=== PATIENT | female | born 1995 | race Caucasian/White ===

== ENCOUNTER 2018-02-06 18:28 | Inpatient (IN) | payer OTHER ==
[~2018-02-06] VITALS: Ht 175.3 cm; Wt 76.7 kg
[2018-02-06 18:40] VITALS: BP 125/66
--- NOTE | 2018-02-06 18:56 | NUR ---
AMBULATES TO BED 9 W/ SLOW STEADY GAIT
--- NOTE | 2018-02-06 19:15 | NUR ---
PATIENT PRESENTS TO ED WITH RIGHT LOWER BACK PAIN X1 DAY. PATIENT STATES A SHARP AND SHOOTING PAIN IN HER LOWER RIGHT BACK NON RADIATING. PATIENT DENIES ANY PAIN OR TROUBLE DURING URINATION; . PT STATES NAUSEA BUT DENIES V/D; SKIN IS PINK/WARM/DRY; AAOX4 WITH EVEN AND STEADY GAIT; LUNGS CLEAR BL; HR EVEN AND REGULAR; PT DENIES ANY FEVER, CP, SOB, OR COUGH AT THIS TIME; PATIENT STATES PAIN OF 7/10 AT THIS TIME; VSS; PATIENT POSITIONED FOR COMFORT; HOB ELEVATED; BEDRAILS UP X1; BED DOWN. ER MD MADE AWARE OF PT STATUS.
[2018-02-06] MEDS ORDERED: CYCLOBENZAPRINE 10 MG TAB PO ONE (19:20)
[2018-02-06] MEDS ORDERED: IBUPROFEN 800 MG TAB PO ONE (19:20)
--- NOTE | 2018-02-06 20:32 | NUR ---
Dr. Mccullough evaluating patient at bedside.
--- NOTE | 2018-02-06 20:47 | NUR ---
Patient taken to CT scan via wheelchair by tech.
[2018-02-06 20:52] LABS: APPEARANCE,URINE CLEAR (CLEAR); BILIRUBIN,URINE NEGATIVE (NEGATIVE); COLOR,URINE YELLOW (YELLOW); LEUKOCYTE ESTERASE ,URINE NEGATIVE (NEGATIVE); NITRITE, URINE NEGATIVE (NEGATIVE); UGLUCOSE NEGATIVE (NEGATIVE)
[2018-02-06 20:54] LABS: BLOOD, URINE NEGATIVE (NEGATIVE)
--- NOTE | 2018-02-06 20:57 | NUR ---
Patient returned from CT scan. RN re-evaluating patient at bedside.
[2018-02-06] MEDS ORDERED: HYDROcodone/APAP 5/325 MG 1 TAB TAB PO ONE (21:50)
[2018-02-06] MEDS ORDERED: MORPHINE SULFATE 4 MG/ML SYR IVP ONE (22:05)
[2018-02-06] MEDS ORDERED: NACL 0.9% 1,000 ML IV ONE (22:05)
[2018-02-06] MEDS ORDERED: MORPHINE SULFATE 4 MG/ML SYR ONE (22:10)
[2018-02-06 22:31] LABS: BASOPHILS % (AUTO) 0.5 % (0.0-2.0); EOSINOPHILS # (AUTO) 0.1 K/uL (0-0.4); HEMATOCRIT 41.9 % (36-48); HEMOGLOBIN 13.7 g/dL (12.0-16.0); LYMPHOCYTES # (AUTO) 2.2 K/uL (2.5-16.5); LYMPHOCYTES % (AUTO) 33.8 % (20.5-51.1); MEAN CORPUSCULAR HEMOGLOBIN 28 pg (27-31); MEAN CORPUSCULAR HGB CONC 33 g/dL (33-37); MEAN CORPUSCULAR VOLUME 86.1 fL (80-94); MONOCYTES # (AUTO) 0.7 K/uL (0.8-1.0); MONOCYTES % (AUTO) 10.2 % (1.7-9.3); NEUTROPHILS # (AUTO) 3.6 K/uL (1.8-7.7); NEUTROPHILS % (AUTO) 53.5 % (42.2-75.2); PLATELET COUNT (AUTO) 241 K/uL (140-450); RED BLOOD CELL COUNT(AUTO) 4.87 MIL/uL (4.20-5.40); RED CELL DISTRIBUTION WIDTH 13.5 % (11.6-13.7); WHITE BLOOD COUNT (AUTO) 6.6 K/uL (4.8-10.8)
[2018-02-06 22:40] LABS: ANION GAP 13.7 (8-16); CARBON DIOXIDE 26.6 mmol/L (21-32); CREATININE 0.7 mg/dL (0.6-1.3); POTASSIUM 4.3 mmol/L (3.5-5.1)
[2018-02-06 22:46] LABS: ALBUMIN 4.2 g/dL (3.4-5.0); TOTAL BILIRUBIN 0.4 mg/dL (0.0-1.0)
[2018-02-06 22:52] LABS: PROTHROMBIN TIME 10.6 secs (10.8-13.4)
[2018-02-07] MEDS: DEXT 5% /NACL 0.9% 1,000 ML IV SCH ×2 (00:05→13:25)
[2018-02-07] MEDS ORDERED: ACETAMINOPHEN 325 MG TAB PO PRN (00:05)
[2018-02-07 00:45] VITALS: BP 114/58
--- NOTE | 2018-02-07 00:47 | NUR ---
Patient will be admitted to care of DR. ZIEGLER. Admited to MED SURG. Will go to room 105B. Belongings list completed. Report to CANDE THOMAS.
--- NOTE | 2018-02-07 01:12 | NUR ---
RECEIVED REPORT FROM DAYSHIFT NURSE AT BEDSIDE FOR CONTINUITY OF CARE PT AAOX4. IV LAC 20G SALINE LOCK. PT IS AMBULATORY. NO SOB NO S/S OF DISTRESS ON RA. BED LOWERED CALL LIGHT WITHIN REACH WILL CONTINUE TO MONITOR. PT ORIENTED TO ROOM.
[2018-02-07] MEDS: metroNIDAZOLE 500 MG/NS PREMIX 100 ML IV SCH ×3 (04:43→20:18)
--- NOTE | 2018-02-07 07:30 | NUR ---
RECEIVED REPORT FROM FOOD SERVICE REPRESENTATIVE NURSE, PT IS SLEEPING IN BED BUT EASILY AWAKEN, PT IS AAOX4, AMBULATORY, IV IS ON THE LEFT AC, FLUSHING WELL, MINIMAL SWELLING NOTED, WILL CONTINUE TO MONITOR, NO S/S OF RESPIRATORY DISTRESS OR DISCOMFORT NOTED, DISCUSSED PLAN OF CARE WITH PT, PT VERBALIZED UNDERSTANDING, SAFETY/FALL PRECAUTIONS ARE IN PLACE, CALL LIGHT WITHIN REACH, WILL CONTINUE TO MONITOR.
--- NOTE | 2018-02-07 07:30 | NUR ---
ENDORSED REPORT FROM DAYSHIFT NURSE AT BEDSIDE FOR CONTINUITY OF CARE.
[2018-02-07 08:00] VITALS: BP 108/57
--- NOTE | 2018-02-07 08:41 | NUR ---
PATIENT HAS BEEN SCREENED AND CATEGORIZED LOW NUTRITION RISK. PATIENT WILL BE SEEN WITHIN 7 DAYS OF ADMISSION. 02/13/[address]
[2018-02-07] MEDS: MORPHINE SULFATE 4 MG/ML SYR IVP PRN ×2 (08:45→23:23)
[2018-02-07] MEDS: ONDANSETRON 4 MG/2 ML VIAL IVP PRN (08:45)
--- NOTE | 2018-02-07 09:20 | NUR ---
NEW IV STARTED ON THE PATIENT'S LEFT WRIST, #22, PATENT, INTACT, FLUSHING WELL. PT TOLERATED WELL. PT'S FATHER IS AT BEDSIDE, CALL LIGHT WITHIN REACH.
--- NOTE | 2018-02-07 11:15 | NUR ---
CHARGE NURSE CALLED DR. SOUZA AND DID GET A HOLD OF HIM. PER DR. SOUZA DUE 12 LEAD EKG, CXR, TEST AND OBTAIN CONSENT. DR. SOUZA SAID HE WOULD BE HERE AFTER 18:30 TODAY.
--- NOTE | 2018-02-07 13:00 | NUR ---
PT RESTING IN BED, PT'S BOYFRIEND IS AT BEDSIDE.
--- NOTE | 2018-02-07 13:25 | NUR ---
CM NOTE INITIAL REVIEW FAXED TO [facility] [phone] PRE[facility] #
[2018-02-07 14:10] LABS: PROTHROMBIN TIME 11.2 secs (10.8-13.4)
--- NOTE | 2018-02-07 14:50 | NUR ---
PT RESTING IN BED, USING HER CELL PHONE, NO S/S OF DISCOMFORT NOTED, CALL LIGHT IS WITHIN REACH.
[2018-02-07 16:00] VITALS: BP 103/60
--- NOTE | 2018-02-07 17:35 | NUR ---
PT RESTING IN BED, NO S/S OF RESPIRATORY DISTRESS OR DISCOMFORT NOTED, CALL LIGHT WITHIN REACH.
--- NOTE | 2018-02-07 19:10 | NUR ---
ENDORSED PT TO WATER PIPE INSTALLER NURSE FOR CONTINUITY OF CARE. PT STABLE AT THIS TIME.
--- NOTE | 2018-02-07 19:30 | NUR ---
ASSUMED CARE OF PATIENT, AWAKE, ALERT AND ORIENTED. FAMILY AT BEDSIDE. AWAITING FOR SURGEON TO ARRIVE. NPO. CALL LIGHT WITHIN REACH.
[2018-02-07] MEDS ORDERED: BUPIVACAINE-MPF 0.25% 30 ML VIAL INJ ONE (20:31)
[2018-02-07] MEDS ORDERED: fentaNYL 0.05 MG/ML VIAL ONE (20:39)
[2018-02-07] MEDS ORDERED: LIDOCAINE 2% 100 MG/5 ML SYR IVP ONE (20:39)
[2018-02-07] MEDS ORDERED: SUCCINYLCHOLINE CHLORIDE 200 MG/10 ML VIAL IVP ONE (20:39)
[2018-02-07] MEDS ORDERED: DESFLURANE 240 ML BTL INH ONE (20:39)
[2018-02-07] MEDS ORDERED: ePHEDrine 50 MG/ML VIAL ONE (20:39)
[2018-02-07] MEDS ORDERED: ROCURONIUM 50 MG/5 ML VIAL IV ONE (20:39)
[2018-02-07] MEDS ORDERED: DEXAMETHASONE 4 MG/ML VIAL ONE (20:39)
[2018-02-07] MEDS ORDERED: PHENYLEPHRINE 10 MG/ML VIAL ONE (20:39)
[2018-02-07] MEDS ORDERED: MIDAZOLAM 2 MG/2 ML VIAL ONE (20:39)
[2018-02-07] MEDS ORDERED: GLYCOPYRROLATE 0.2 MG/ML VIAL ONE (20:39)
[2018-02-07] MEDS ORDERED: KETOROLAC 30 MG/ML VIAL ONE (20:39)
[2018-02-07] MEDS ORDERED: PROPOFOL 200 MG/20 ML VIAL IV ONE (20:39)
--- NOTE | 2018-02-07 20:45 | NUR ---
PICKED UP TO OR BY OR TEAM. DR. KUMAR AT BEDSIDE. CONSENT OBTAINED.
[2018-02-07] MEDS ORDERED: HYDROmorphone 1 MG/ML AMP IVP PRN (21:10)
[2018-02-07] MEDS ORDERED: ONDANSETRON 4 MG/2 ML VIAL IVP PRN (21:10)
[2018-02-07] MEDS ORDERED: ONDANSETRON 4 MG/2 ML VIAL ONE (22:03)
[2018-02-07] MEDS: HYDROmorphone PFS 2 MG/ML SYR ONE ×2 (22:05→22:15)
--- NOTE | 2018-02-07 22:40 | NUR ---
BACK FROM SURGERY VIA [place]. STABLE CONDITION. VITAL SIGNS STABLE. CALL LIGHT WITHIN REACH.
--- NOTE | 2018-02-08 | NUR ---
VITAL SIGNS STABLE. NO COMPLAINS. AFEBRILE. SLEEPING WELL. CALL LIGHT WITHIN REACH.
[2018-02-08 00:14] VITALS: BP 94/47
[2018-02-08] MEDS: DEXT 5% /NACL 0.9% 1,000 ML IV SCH ×2 (02:45→09:16)
[2018-02-08] MEDS: ONDANSETRON 4 MG/2 ML VIAL IVP PRN ×3 (03:03→12:59)
[2018-02-08] MEDS: metroNIDAZOLE 500 MG/NS PREMIX 100 ML IV SCH ×3 (04:40→20:30)
[2018-02-08] MEDS: MORPHINE SULFATE 4 MG/ML SYR IVP PRN ×3 (06:45→19:25)
--- NOTE | 2018-02-08 07:23 | NUR ---
ENDORSED CARE AT BEDSIDE WITH ALEXA RN, PATIENT IN STABLE CONDITION.
--- NOTE | 2018-02-08 07:30 | NUR ---
RECEIVED PT ON BED AAOX4 NO SOB NOTED. NO C/O PAIN AT THIS TIME. IV TO RT WRIST PATENT AND INTACT. CHEST CLEAR. ABDOMEN SOFT, BOWEL SOUNDS PRESENT. NO EDEMA NOTED. WITH 4 SMALL SURGICAL INCISIONS ON ABDOMEN, STERI STRIPS DRY AND INTACT. NO EDEMA NOTED. INSTRUCTED PT TO CALL FOR ASSISTANCE, CALL LIGHT WITHIN REACH, PT VERBALIZED UNDERSTANDING.
[2018-02-08 07:59] LABS: BASOPHILS % (AUTO) 0.2 % (0.0-2.0); HEMATOCRIT 38.1 % (36-48); HEMOGLOBIN 12.6 g/dL (12.0-16.0); LYMPHOCYTES # (AUTO) 0.6 K/uL (2.5-16.5); LYMPHOCYTES % (AUTO) 8.8 % (20.5-51.1); MEAN CORPUSCULAR HEMOGLOBIN 29 pg (27-31); MEAN CORPUSCULAR HGB CONC 33 g/dL (33-37); MEAN CORPUSCULAR VOLUME 86.3 fL (80-94); MONOCYTES # (AUTO) 0.3 K/uL (0.8-1.0); MONOCYTES % (AUTO) 3.8 % (1.7-9.3); NEUTROPHILS % (AUTO) 87.2 % (42.2-75.2); PLATELET COUNT (AUTO) 214 K/uL (140-450); RED BLOOD CELL COUNT(AUTO) 4.41 MIL/uL (4.20-5.40); RED CELL DISTRIBUTION WIDTH 13.3 % (11.6-13.7); WHITE BLOOD COUNT (AUTO) 6.8 K/uL (4.8-10.8)
[2018-02-08 08:00] VITALS: BP 106/60
[2018-02-08 08:26] LABS: POTASSIUM 4.9 mmol/L (3.5-5.1)
[2018-02-08 08:27] LABS: ALBUMIN 3.4 g/dL (3.4-5.0); ANION GAP 12.7 (8-16); CARBON DIOXIDE 26.2 mmol/L (21-32); CREATININE 0.8 mg/dL (0.6-1.3); TOTAL BILIRUBIN 0.5 mg/dL (0.0-1.0)
--- NOTE | 2018-02-08 09:00 | NUR ---
PT AMBULATING IN THE HALLWAY. ACTIVITY TOLERATED WELL. PT STATED SHE HAS BEEN BURPING.
--- NOTE | 2018-02-08 13:00 | NUR ---
PT VOMITED PREVIOUSLY TAKEN LIQUIDS, APPROXIMATELY 200 MLS. ZOFRAN IVP GIVEN PRN. WILL CONTINUE TO MONITOR PT.
--- NOTE | 2018-02-08 14:25 | NUR ---
PT SEEN BY DR. ZIEGLER. NO NEW ORDERS.
[2018-02-08 16:00] VITALS: BP 107/67
--- NOTE | 2018-02-08 17:00 | NUR ---
DR. KUMAR CALLED AND CHECKED ON PT. NEW ORDERS GIVEN OVER THE PHONE.
--- NOTE | 2018-02-08 17:00 | NUR ---
DR. ETIENNE CALLED AND CHECKED ON PT. NEW ORDERS GIVEN OVER THE PHONE. Addendum: 02/09/18 at 0847 by Beverly Quintero RN DISREGARD ABOVE NOTES. WRONG DOCTOR.
[2018-02-08] MEDS: METOCLOPRAMIDE 10 MG/2 ML INJ VIAL IVP SCH ×2 (18:33→23:41)
--- NOTE | 2018-02-08 18:49 | NUR ---
PT AMBULATING AGAIN IN THE HALLWAY. ACTIVITY TOLERATED WELL. PT STATED SHE PASSED GAS 3X TIMES NOW. WILL ENDORSE TO NEXT SHIFT NURSE FOR CONTINUITY OF CARE.
--- NOTE | 2018-02-08 19:16 | NUR ---
RECEIVED REPORT FROM DAY SHIFT RN, PATIENT RESTING IN BED, STATED SURGICAL PAIN 8/10, INFORMED PATIENT THAT I WOULD CHECK HER VITAL SIGNS FIRST, THEN GIVE HER PAIN MEDICATION. PATIENT VERBALIZED UNDERSTANDING. IV PATENT AND INTACT, INFUSING FLUID WELL. CALL LIGHT WITHIN REACH, SAFETY MEASURE ENSURED, WILL CONTINUE TO MONITOR.
[2018-02-08 19:20] VITALS: BP 103/60
--- NOTE | 2018-02-08 20:34 | NUR ---
DUE MEDICATION GIVEN, PATIENT TOLERATED WELL. CALL LIGHT WITHIN REACH, SAFETY MEASURE ENSURED, WILL CONTINUE TO MONITOR.
--- NOTE | 2018-02-08 22:19 | NUR ---
BOY FRIEND IS VISITING PATIENT, PATIENT AWAKE ALERT ORIENTED X4. NO S/S OF DISTRESS NOTED, CALL LIGHT WITHIN REACH, SAFETY MEASURE ENSURED, WILL CONTINUE TO MONITOR.
[2018-02-08 23:47] VITALS: BP 105/59
[2018-02-09] MEDS: MORPHINE SULFATE 4 MG/ML SYR IVP PRN ×2 (00:05→05:54)
--- NOTE | 2018-02-09 00:54 | NUR ---
PAIN 8/10, BP 105/59, HR 72, PAIN MEDICATION ADMINISTERED, PATIENT IS SLEEPING RIGHT NOW, RESPIRATION EVEN AND UNLABORED, CALL LIGHT WITHIN REACH, SAFETY MEASURE ENSURED, WILL CONTINUE TO MONITOR.
--- NOTE | 2018-02-09 02:16 | NUR ---
PATIENT IS SLEEPING, NO S/S OF DISTRESS NOTED, RESPIRATION EVEN AND UNLABORED, CALL LIGHT WITHIN REACH, SAFETY MEASURE ENSURED, WILL CONTINUE TO MONITOR.
[2018-02-09] MEDS: metroNIDAZOLE 500 MG/NS PREMIX 100 ML IV SCH ×2 (05:00→12:20)
[2018-02-09] MEDS: METOCLOPRAMIDE 10 MG/2 ML INJ VIAL IVP SCH (05:00)
[2018-02-09] MEDS: DEXT 5% /NACL 0.9% 1,000 ML IV SCH ×2 (05:00→12:20)
--- NOTE | 2018-02-09 05:07 | NUR ---
DUE MEDICATION GIVEN, PATIENT TOLERATED WELL. CALL LIGHT WITHIN REACH, SAFETY MEASURE ENSURED, WILL CONTINUE TO MONITOR.
--- NOTE | 2018-02-09 05:58 | NUR ---
PAIN 8/10, BP 104/61, HR 71, PAIN MEDICATION GIVEN ORDERED. CALL LIGHT WITHIN REACH, SAFETY MEASURE ENSURED, WILL CONTINUE TO MONITOR.
[2018-02-09 06:37] LABS: BASOPHILS % (AUTO) 0.2 % (0.0-2.0); EOSINOPHILS % (AUTO) 0.8 % (0.0-4.0); HEMOGLOBIN 10.9 g/dL (12.0-16.0); LYMPHOCYTES # (AUTO) 1.8 K/uL (2.5-16.5); LYMPHOCYTES % (AUTO) 32.3 % (20.5-51.1); MEAN CORPUSCULAR HEMOGLOBIN 28 pg (27-31); MEAN CORPUSCULAR HGB CONC 33 g/dL (33-37); MEAN CORPUSCULAR VOLUME 85.7 fL (80-94); MONOCYTES # (AUTO) 0.6 K/uL (0.8-1.0); MONOCYTES % (AUTO) 11.8 % (1.7-9.3); NEUTROPHILS % (AUTO) 54.9 % (42.2-75.2); PLATELET COUNT (AUTO) 182 K/uL (140-450); RED BLOOD CELL COUNT(AUTO) 3.85 MIL/uL (4.20-5.40); RED CELL DISTRIBUTION WIDTH 13.6 % (11.6-13.7); WHITE BLOOD COUNT (AUTO) 5.5 K/uL (4.8-10.8)
[2018-02-09 07:11] LABS: ALBUMIN 3.1 g/dL (3.4-5.0); ANION GAP 9.6 (8-16); CREATININE 0.8 mg/dL (0.6-1.3); POTASSIUM 3.6 mmol/L (3.5-5.1); TOTAL BILIRUBIN 0.6 mg/dL (0.0-1.0)
--- NOTE | 2018-02-09 07:20 | NUR ---
ENDORSED PLAN OF CARE TO DAY SHIFT RN, PATIENT IS IN STABLE CONDITION.
[2018-02-09 08:00] VITALS: BP 110/57
--- NOTE | 2018-02-09 08:45 | NUR ---
PT TOLERATED FULL LIQUIDS FOR BREAKFAST. NO N&V NOTED.
[2018-02-09] MEDS ORDERED: ACETAMINOPHEN/CODEINE 300/30MG 1 TAB PO PRN (09:00)
[2018-02-09] MEDS ORDERED: DOCUSATE SODIUM 100 MG GELCAP PO SCH (09:00)
--- NOTE | 2018-02-09 09:04 | NUR ---
CM NOTE concurrent REVIEW FAXED TO [facility] [phone] PRETTY # [phone]
--- NOTE | 2018-02-09 09:05 | NUR ---
DR. KUMAR CALLED AND UPDATED WITH PT'S STATUS. NEW ORDERS GIVEN OVER THE PHONE.
[2018-02-09] MEDS ORDERED: METOCLOPRAMIDE 10 MG/2 ML INJ VIAL IVP SCH (12:00)
--- NOTE | 2018-02-09 12:30 | NUR ---
PT TOLERATED FULL LIQUID FOR LUNCH. NO C/O N&V NOTED.
[2018-02-09] MEDS ORDERED: ACET-2863 PO (13:57)
--- NOTE | 2018-02-09 14:45 | NUR ---
DISCHARGE INSTRUCTIONS AND PRESCRIPTIONS GIVEN TOP PT WHICH VERBALIZED FULL UNDERSTANDING OF THE INSTRUCTIONS AND THE NEED TO FOLLOW UP WITH DR. KUMAR AND PT'S OWN PCP WITHIN 1 WEEK. ARM BANDS AND IV REMOVED, CANNULA TIP INTACT.
--- NOTE | 2018-02-09 15:00 | NUR ---
PT ESCORTED OUT, AMBULATORY. NO SOB NOTED. NO COMPLAINTS MADE. 4 SMALL ABD INCISIONS WITH STERI STRIPS INTACT. PT IS D/C HOME WITH FAMILY.
== END 2018-02-09 15:00 | disposition home or self-care (01) | DRG 234 ==
LOC: MED 18:28 → MTU 02-07 00:10
PROVIDERS: ADMIT Hospitalist; ATTEND Hospitalist
PROC: 0DTJ4ZZ Resection of Appendix, Percutaneous Endoscopic Approach (ICD-10-PCS; principal; 2018-02-07 20:30)
DX: K35.80 Unspecified acute appendicitis (principal)
CPT/HCPCS: 36415; 71045; 76705; 80053; 81003; 81025; 83605; 85025; 85610; 85730; 87040; 87081; 88304; 93005; 96361; 96374; 99285; J0330; J1100; J1170; J1885; J2001; J2250; J2270; J2370; J2405; J2704; J2765; J3010; J3490; J7030; J7042; J7120; Q0092

== ENCOUNTER 2018-07-15 15:09 | Emergency (ER) | payer OTHER ==
[~2018-07-15] VITALS: Ht 172.7 cm; Wt 76.9 kg
[~2018-07-15 15:09] MED LIST: HYDR-5123 PO
[2018-07-15 15:12] VITALS: BP 133/84
--- NOTE | 2018-07-15 15:33 | NUR ---
Patient being evaluated by physician at bedside.
--- NOTE | 2018-07-15 15:35 | NUR ---
23/ F BIB BOYFRIEND, C/O VAGINAL BLEEDING 30 MIN AGO, SATURATED CLOTHING. DENIES CRAMPING , DISCOMFORT, WEAKNESS, N/V, OR ANY INJURY. RECENTLY FINISHED ABX FOR UTI. AOX4, STEADY GAIT, SAFETY PRECAUTIONS APPLIED.
[2018-07-15 15:47] LABS: BASOPHILS % (AUTO) 0.3 % (0.0-2.0); EOSINOPHILS # (AUTO) 0.1 K/uL (0-0.4); EOSINOPHILS % (AUTO) 0.9 % (0.0-4.0); HEMATOCRIT 36.7 % (36-48); HEMOGLOBIN 12.3 g/dL (12.0-16.0); LYMPHOCYTES # (AUTO) 1.7 K/uL (2.5-16.5); LYMPHOCYTES % (AUTO) 19.6 % (20.5-51.1); MEAN CORPUSCULAR HEMOGLOBIN 28 pg (27-31); MEAN CORPUSCULAR HGB CONC 33 g/dL (33-37); MONOCYTES # (AUTO) 0.7 K/uL (0.8-1.0); MONOCYTES % (AUTO) 7.8 % (1.7-9.3); NEUTROPHILS # (AUTO) 6.4 K/uL (1.8-7.7); NEUTROPHILS % (AUTO) 71.4 % (42.2-75.2); PLATELET COUNT (AUTO) 219 K/uL (140-450); RED BLOOD CELL COUNT(AUTO) 4.42 MIL/uL (4.20-5.40); RED CELL DISTRIBUTION WIDTH 14.6 % (11.6-13.7); WHITE BLOOD COUNT (AUTO) 8.9 K/uL (4.8-10.8)
[2018-07-15 15:48] LABS: APPEARANCE,URINE SLIGHTLY CLOUDY (CLEAR); BILIRUBIN,URINE NEGATIVE (NEGATIVE); BLOOD, URINE 3+ (NEGATIVE); COLOR,URINE SLIGHT BLOODY (YELLOW); LEUKOCYTE ESTERASE ,URINE TRACE (NEGATIVE); NITRITE, URINE NEGATIVE (NEGATIVE); UGLUCOSE NEGATIVE (NEGATIVE)
--- NOTE | 2018-07-15 15:51 | NUR ---
US AT BEDSIDE
--- NOTE | 2018-07-15 15:51 | NUR ---
ULTRASOUND AT BEDSIDE.
[2018-07-15 15:58] LABS: RBC,URINE TOO NUMEROUS TO COUN /HPF (0-5); WBC,URINE 0-5 (RARE) /HPF (0-5)
[2018-07-15 16:01] LABS: ANION GAP 13.1 (8-16); CARBON DIOXIDE 24.4 mmol/L (21-32); CREATININE 0.7 mg/dL (0.6-1.3); POTASSIUM 3.5 mmol/L (3.5-5.1)
--- NOTE | 2018-07-15 17:36 | NUR ---
RHOGAM ORDER RECEIVED; PT SIGNED BLOOD PRODUCT CONSENT WILL MEDICATE WRITTEN---PT HAS UPCOMING PROJECT INTERN APPT MONDAY
--- NOTE | 2018-07-15 17:40 | NUR ---
RHOGAM ADMINISTERED TO PT IM, FAMILY AT BEDSIDE, PT. EDUCATED ON INJECTION SIDE EFFECTS, PT. VERBALIZED UNDERSTANDING.
--- NOTE | 2018-07-15 17:44 | NUR ---
Patient discharged with v/s stable. Written and verbal after care instructions given and explained. Patient verbalized understanding. Ambulatory with steady gait. All questions addressed prior to discharge. Advised to follow up with PMD.
[2018-07-15 17:50] VITALS: BP 115/60
== END 2018-07-15 17:44 | disposition home or self-care (01) ==
LOC: MED 15:09
DX: O46.91 Antepartum hemorrhage, unspecified, first trimester (principal); Z3A.08 8 weeks gestation of pregnancy; Z79.899 Other long term (current) drug therapy
CPT/HCPCS: 36415; 76801; 80048; 81001; 81025; 84702; 85025; 86886; 86900; 86901; 99284; J2790; Q0092